=== PATIENT | male | born 1995 | race Caucasian/White ===

== ENCOUNTER 2024-08-07 22:16 | Emergency (ER) | payer BC ==
[~2024-08-07] VITALS: Ht 175.3 cm; Wt 77.1 kg
[2024-08-07] MEDS ORDERED: AMOX/CLAVULANATE 875 MG TABLET ONE (23:40)
[2024-08-07] MEDS ORDERED: RABIES VACCINE (PCEC)/PF 1 EA KIT IM ONE (23:41)
[2024-08-07] MEDS: RABIES VACCINE (PCEC)/PF 1 EA KIT IM ONE (23:51)
[2024-08-07] MEDS: RABIES IMMUNE GLOBULIN/PF 150 UNIT/ML VIAL IM ONE (23:51)
[2024-08-07] MEDS ORDERED: AMOX-430 PO (23:53)
[2024-08-07] MEDS: AMOX/CLAVULANATE 875 MG TABLET PO ONE (23:55)
[2024-08-08 00:13] VITALS: BP 125/84; TEMP 98.8; O2SAT 100
== END 2024-08-08 00:13 | disposition home or self-care (01) ==
LOC: ER 22:22
DX: S71.132A Puncture wound without foreign body, left thigh, initial encounter (principal); Z79.899 Other long term (current) drug therapy; W54.0XXA Bitten by dog, initial encounter
CPT/HCPCS: 90375

== ENCOUNTER 2024-08-11 16:22 | Emergency (ER) | payer BC ==
[~2024-08-11] VITALS: Ht 182.9 cm; Wt 81.6 kg
[2024-08-11 16:22] VITALS: BP 129/77; TEMP 98.1
[~2024-08-11 16:22] MED LIST: AMOX-430 PO
[2024-08-11] MEDS ORDERED: RABIES VACCINE (PCEC)/PF 1 EA KIT IM ONE (16:43)
[2024-08-11] MEDS: RABIES VACCINE (PCEC)/PF 1 EA KIT IM ONE (16:56)
[2024-08-11 17:03] VITALS: O2SAT 99
== END 2024-08-11 17:23 | disposition home or self-care (01) ==
LOC: ER 16:32
DX: Z29.14 Encounter for prophylactic rabies immune globulin (principal); Z23 Encounter for immunization; Z60.2 Problems related to living alone

== ENCOUNTER 2024-08-15 14:05 | Emergency (ER) | payer BC, MEDICAID ==
[~2024-08-15] VITALS: Ht 182.9 cm; Wt 81.6 kg
[2024-08-15 14:20] VITALS: BP 124/77; TEMP 98.2
[2024-08-15] MEDS ORDERED: RABIES VACCINE (PCEC)/PF 1 EA KIT IM ONE (15:32)
[2024-08-15] MEDS: RABIES VACCINE (PCEC)/PF 1 EA KIT IM ONE (15:44)
[2024-08-15 15:48] VITALS: O2SAT 98
== END 2024-08-15 15:49 | disposition home or self-care (01) ==
LOC: ER 14:09
DX: S71.152D Open bite, left thigh, subsequent encounter (principal); Z23 Encounter for immunization; Z60.2 Problems related to living alone; W54.0XXD Bitten by dog, subsequent encounter

== ENCOUNTER 2024-08-22 12:08 | Emergency (ER) | payer BC, OTHER ==
[~2024-08-22] VITALS: Ht 177.8 cm; Wt 81.6 kg
[2024-08-22 12:41] VITALS: BP 144/88; TEMP 97.8
[2024-08-22] MEDS ORDERED: RABIES VACCINE (PCEC)/PF 1 EA KIT IM ONE (13:03)
[2024-08-22] MEDS: RABIES VACCINE (PCEC)/PF 1 EA KIT IM ONE (13:19)
[2024-08-22 13:44] VITALS: O2SAT 99
== END 2024-08-22 13:45 | disposition home or self-care (01) ==
LOC: ER 12:08
DX: S80.871D Other superficial bite, right lower leg, subsequent encounter (principal); Z23 Encounter for immunization; Z60.2 Problems related to living alone; W54.0XXD Bitten by dog, subsequent encounter